=== PATIENT | female | born 1980 | race Caucasian/White ===

== ENCOUNTER 2019-12-24 12:41 | Emergency (ER) | payer OTHER, MEDICAID ==
[~2019-12-24] VITALS: Ht 175.3 cm; Wt 93.0 kg
[~2019-12-24 12:41] MED LIST: AZITHROMYCIN 2250 MG PO; BACITRACIN 500U30 G1 TOP; BACTRIM DS TAB1 EACH PO; NOHOMEMEDICATIONS; NORCO 5-325 TA1 EACH PO
[2019-12-24] MEDS ORDERED: NORCO 5-325 TA1 EAC2 PO (13:45)
[2019-12-24] MEDS ORDERED: BACTRIM DS TAB1 EACH PO (13:45)
[2019-12-24] MEDS ORDERED: KEFLEX500 M1 PO (13:45)
[2019-12-24 13:55] VITALS: BP 121/80
== END 2019-12-24 14:21 | disposition home or self-care (01) ==
LOC: M.ERS 12:41
DX: S21.132A Puncture wound without foreign body of left front wall of thorax without penetration into thoracic cavity, initial encounter (principal); L02.213 Cutaneous abscess of chest wall; F17.210 Nicotine dependence, cigarettes, uncomplicated; Z98.51 Tubal ligation status; X58.XXXA Exposure to other specified factors, initial encounter; Y93.89 Activity, other specified; Y92.89 Other specified places as the place of occurrence of the external cause; Y99.8 Other external cause status